=== PATIENT | male | born 1960 ===

== ENCOUNTER → 2018-06-09 08:17 | Outpatient (CLI) | payer MEDICAID, SELFPAY | PROVIDERS: PCP Nurse Practitioner; Visit Provider Nurse Practitioner | DX: I49.9 Cardiac arrhythmia, unspecified (principal); I47.1 Supraventricular tachycardia | CPT/HCPCS: 93226 ==

== ENCOUNTER 2019-03-14 14:48 | Outpatient (CLI) | payer MEDICAID, SELFPAY ==
[2019-03-14 15:11] LABS: HCT 44.8 % (40.0-50.0); HGB 15.3 g/dL (13.5-17.5); Mean Corp. HGB Concentration 34.2 g/dL (32.0-36.0); Mean Corpuscular Hemoglobin 30.5 pg (27.0-33.0); Mean Corpuscular Volume 89.4 fL (80-95); Mean Platelet Volume 10.4 fL (8.0-11.0); Platelet Count 201 x1000/uL (130-400); RBC 5.01 m/cumm (4.50-6.00); White Blood Cell Count 4.43 k/cumm (4.4-10.8)
[2019-03-14 16:19] LABS: ALT 55 U/L (12-78); AST 41 U/L (15-37); Albumin 4.1 g/dL (3.4-5.0); Alkaline Phosphatase 76 U/L (46-116); Anion Gap 8.3 mmol/L (3-11); BUN 17 mg/dL (7-18); Bilirubin, Total 0.8 mg/dL (0.2-1.0); CO2 28.7 mmol/L (21.0-32.0); CREATININE 1.16 mg/dL (0.70-1.30); Calcium 9.4 mg/dL (8.5-10.1); Chloride 101 mmol/L (98-107); Cholesterol 234 mg/dL (50-200); Glucose 86 mg/dL (70-100); HDL Cholesterol 72 mg/dL (40-60); LDL CHOLESTEROL 156 mg/dL (<100); Potassium 4.3 mmol/L (3.5-5.1); Sodium 138 mmol/L (136-145); TSH (W/Ref FT4) 1.34 uIU/mL (0.358-3.74); Total Protein 7.9 g/dL (6.4-8.2); Triglyceride 62 mg/dL (30-150)
== END 2019-03-14 15:08 ==
PROVIDERS: PCP Nurse Practitioner; Visit Provider Nurse Practitioner
DX: R61 Generalized hyperhidrosis (principal); E78.5 Hyperlipidemia, unspecified
CPT/HCPCS: 36415; 80053; 80061; 83721; 85027; 84443

== ENCOUNTER 2022-08-04 16:51 | Outpatient (REF) | payer MEDICAID, SELFPAY ==
[2022-09-02 12:55] LABS: Fungus Smear No Fungi Seen
== END 2022-08-04 16:52 | disposition home or self-care (01) ==
LOC: LBN 16:51
PROVIDERS: PCP Nurse Practitioner; Visit Provider Nurse Practitioner
DX: L60.8 Other nail disorders (principal)
CPT/HCPCS: 87101; 87206

== ENCOUNTER → 2022-08-14 00:25 | Outpatient (CLI) | payer MEDICAID, SELFPAY ==
--- OUTSIDE RECORDS SUMMARY | 2022-08-14 00:36 | XMS_ITS | Encounter Summary ---
:1960 Author Organization [facility] Address [address] [place] [address] Care Team Providers Name Role Phone Unknown, Provider Primary Care Provider Encounter Details Date Type Department Care Team Description 08/01/2009 Orders Only [facility] Edin Regalado DO Laboratory Services - [address] [place] [address] [place] [address] [place] [address] [phone] Social History Tobacco Use Types Packs/Day Years Used Date Never Assessed Sex Assigned at Date Recorded Not on file documented as of this encounter Plan of Treatment Not on filedocumented as of this encounter Procedures Procedure Name Priority Date/Time Associated Diagnosis Comme [facility] SURGICAL PATHOLOGY Routine 08/01/2009 0:00 EDT Re sults for this procedure are i n the results section. documented in this encounter Results SURGICAL PATHOLOGY (08/01/2009 0:00 EDT) Pathology SURGICAL PATHOLOGY REPORT ? [facility] Report: Reports generated via [employer] interface contain original data; ? LAB however they are lacking the format of the original report. ? Caution should be taken when reading/interpreting unformatted reports. ? Name: ? DLEON, DOMINGA ? Accession #: ? [id number] ? : ? 1960 (Age: 49) ??M ? Collec t Date: ? 08/01/2009 ? Location: ? [facility] ? Re ceive Date: ? 08/01/2009 ? Provider: EDIN MITZ DO ? Copy to: PRIYA MEIERDIERCKS MD ? Final Pathologic Diagnosis: ? A. ?Duodenum, 2 nd portion, biopsy: ? 1. ?Duodenal mu cosa with slightly increased intraepithelial lymphocytes. See comment. ? B. ?Stomach, an trum, biopsy: ? 1. ?Focally act amira mild chronic gastritis and reactive foveolar ? hyperplasia. ? 2. ? Immunostaining for Helicobacter pylori is negative. ??See comment. ? C. ?Colon, sigm oid, polyp, biopsy: ? 1. ?Hyperplasti c polyp. ? D. ?Rectum, john yp, biopsy: ? 1. ?Hyperplasti c polyp. ? Comment: ? Immunostaining for H. pylori (polyclonal, [facility]) is performed on (B). Positive and negative contro ls ? stained appropriately . ??There are increased intraepithelial lymphocytes ? without overt villous blunti ng. ??The findings may represent gluten-sensitive ? enteropathy (celiac sprue) o r other conditions, such as bacterial overgrowth or hypersensitivity reaction to other proteins. ??Serologic studies may be further ?? contributory. ??(Dr. Alvares) /[facility] ? NOTE: ??One or more of the reagents used in immunohistochemical testing in this case may not have been cleared or approved by the U.S. Food and Drug ? Administration (FDA). ??The FDA has determined that such clearance or approval is not necessary. ??These tests are used for clinical purposes. ??They should not be regarded as investigational or for research. ??These reagents' ??performance ? characteristics have been de termined by [facility]. ??This ? laboratory is certified nae r the Clinical Laboratory Improvement Amendments of 1988 (CLIA-88) as qualified to perform high complexity clinical laboratory ? testing. ? Document reviewed and electr onically signed by: ? NEHA ALVARES MD ? Report ??Date: 08/07/2009 15 :43 ? By the signature above, the attending physician certifies that he/she has ? personally conducted a gross and/or microscopic examination of the described ? specimens and rendered or co nfirmed the above diagnosis. ? Specimen(s) Received: ? A. ?2nd portion of duodenum ? B. ? Antrum ? C. ? 5 mm sigmoid colon polyp ? D. ? 5 mm rectal polyp ? Clinical History: ? A, B. EGD. C, D. CRC screen ? Gross Description: ? Received in [facility] fixative labelled Dleon, Dominga and second ? portion of duodenum are thr ee georges-pink tissues ranging from 0.2 x 0.2 x 0.2 cm to 0.5 x 0.2 x 0.2 cm. ??The specimen is entirely submitted as (A). ? [facility] amira labelled Dleon, Dominga and antrum are two ?? georges-pink tissues measuring 0 .2 x 0.2 x 0.2 cm and 0.6 x 0.2 x 0.2 cm. ??The ? specimen is entirely submitt ed as (B). ? Received in [facility]'s fixat amira labelled Dleon, Dominga and 5 mm sigmoid ? colon polyp is a georges-pink 0 .2 x 0.2 x 0.2 cm tissue submitted as (C). ? Received in [facility]'s fixat amira labelled Dleon, Dominga and 5 mm rectal ? polyp is a georges-pink 0.2 x 0 .2 x 0.2 cm tissue submitted as (D). (M. ? Baca)/mpl ? End of Report ? Specimen Performing Organization Address City/State/ZIP Code Phon e Number [facility] [address] [place] [address] SERVICES [facility] [address] [place] [address] documented in this encounter Visit Diagnoses Not on filedocumented in this encounter Care Teams Conservation Planner Relationship Specialty Start Date End Date Unknown, Provider, PCP - General 08/01/09 08/04/09 documented as of this encounter
--- OUTSIDE RECORDS SUMMARY | 2022-08-14 00:36 | XMS_ITS | Clinical Summary ---
:1960 Author Organization [facility] Address [address] [place] [address] Care Team Providers Name Role Phone Kalen Reynoso MD Primary Care Provider [phone] Encounters Date Type Specialty Care Team Description 08/05/2022 Lab Requisition Clinical Laboratory Outr Resulting Lab , Provider from Last 3 Months Social History Tobacco Use Types Packs/Day Years Used Date Never Assessed Sex Assigned at Date Recorded Not on file Plan of Treatment Health Maintenance Due Date Last Done Comments Hepatitis C Screen 1960 COVID-19 Vaccine (#1) 01[birth year]08/1961 Procedures Procedure Name Priority Date/Time Associated Diagnosis Comme nts FUNGAL CULTURE/SMEAR, Routine 08/04/2022 16:00 EDT SKIN, HAIR OR NAIL from Last 3 Months Insurance Payer Benefit Plan Subscriber ID Effective Phone Address Typ e / Group Dates MEDICAID ACO MEDICAID ACO [id number] 2019-Pres [phone] [address] [place] [address] [facility] [place] [address] y (Home) [place] [address] Care Teams Media Director Relationship Specialty Start Date End Date Kalen Reynoso MD PCP - General 08/05/[address] [place] [phone]
--- NOTE | 2022-08-14 06:30 | DI.US_ITS ---
Exam(s) US THYROID EXAM: US THYROID CLINICAL HISTORY: thyroid tenderness, fullness,E07.89. TECHNIQUE: Ultrasound thyroid performed using standard protocol. COMPARISON: No exams were available for comparison FINDINGS: Both thyroid lobes as well as the isthmus exhibit normal size and echotexture. There are no concerni ng thyroid nodules. There is a solitary tiny 2 millimeter benign cyst at the mid level of the right lobe. There is no adenopathy evident. IMPRESSION: No significant findings on this thyroid ultrasound examination. DATA REPOSITORY:
== END ==
PROVIDERS: PCP Nurse Practitioner; Visit Provider Nurse Practitioner
DX: E07.89 Other specified disorders of thyroid (principal)
CPT/HCPCS: 76536

== ENCOUNTER 2022-08-14 01:39 | Outpatient (CLI) | payer MEDICAID, SELFPAY ==
[2022-08-14 08:49] LABS: ALT 31 U/L (16-63); AST 18 U/L (15-37); Albumin 3.9 g/dL (3.4-5.0); Alkaline Phosphatase 81 U/L (46-116); Anion Gap 5.1 mmol/L (3-11); BUN 14 mg/dL (7-18); Bilirubin, Total 0.6 mg/dL (0.2-1.0); CO2 31.9 mmol/L (21.0-32.0); CREATININE 1.2 mg/dL (0.70-1.30); Calcium 8.9 mg/dL (8.5-10.1); Calculated LDL 97 mg/dL (<100); Chloride 102 mmol/L (98-107); Cholesterol 174 mg/dL (<200); Estimated GFR 67.95 (mL/min/1.73m2); Glucose 98 mg/dL (74-106); HDL Cholesterol 66 mg/dL (40-60); Potassium 4.3 mmol/L (3.5-5.1); Sodium 139 mmol/L (136-145); TSH (W/Ref FT4) 2.99 uIU/mL (0.36-3.74); Triglyceride 56 mg/dL (<150)
== END 2022-08-14 01:40 | disposition home or self-care (01) ==
LOC: LBO 01:39
PROVIDERS: PCP Nurse Practitioner; Visit Provider Nurse Practitioner
DX: E78.5 Hyperlipidemia, unspecified (principal); Z80.42 Family history of malignant neoplasm of prostate; E07.89 Other specified disorders of thyroid; Z12.5 Encounter for screening for malignant neoplasm of prostate
CPT/HCPCS: 36415; 80053; 80061; 84153; 84443